=== PATIENT | female | born 1980 | race Caucasian/White ===

== ENCOUNTER 2020-04-29 02:22 | Emergency (ER) | payer OTHER ==
[~2020-04-29] VITALS: Ht 160 cm; Wt 59.0 kg
--- NOTE | 2020-04-29 02:35 | NUR ---
Patient came in with c/o abscesses on both upper thighs and left deltoid due to heroin use.
[2020-04-29] MEDS ORDERED: LIDOCAINE HCL 1% 20 ML VIAL ONE (02:56)
[2020-04-29] MEDS ORDERED: LORAZEPAM 1 MG TABLET ONE (02:57)
[2020-04-29] MEDS ORDERED: HYDROMORPHONE 2 MG/1 ML DISP.SYRIN ONE (02:57)
[2020-04-29] MEDS ORDERED: CEFTRIAXONE 1 G VIAL ONE (02:57)
[2020-04-29] MEDS ORDERED: LORAZEPAM 0.5 MG TABLET PO ONE (03:00)
[2020-04-29] MEDS ORDERED: SODIUM BICARBONATE 4.2 % (NEUT) 5 ML VIAL TP ONE (03:00)
[2020-04-29] MEDS ORDERED: CEFTRIAXONE 1 G VIAL IM ONE (03:00)
[2020-04-29] MEDS ORDERED: HYDROMORPHONE 1 MG/1 ML DISP.SYRIN IM ONE (03:00)
[2020-04-29] MEDS ORDERED: LIDOCAINE 1%-EPI 1:100,000 20 ML VIAL IJ ONE (03:00)
--- NOTE | 2020-04-29 03:00 | NUR ---
Medications administered. Patient placed on 2L oxygen via nasal cannula. SpO2 100%. Will continue to monitor. I&D setup at bedside.
--- NOTE | 2020-04-29 04:00 | NUR ---
Dr. Lemus at bedside for I&D.
--- NOTE | 2020-04-29 04:30 | NUR ---
Applied dressings to patient's abscess sites. Patient given written and verbal discharge instructions. Patient verbalizes understanding of instructions. Patient is ambulatory with steady gait. Refuses offer of snf placement. Patient given list of available shelters in surrounding area. Provided patient sandwich & Juice. Patient states she is going to take a Lyft back to her prior living arrangement.
[2020-04-29 05:12] VITALS: BP 121/83
--- NOTE | 2020-04-29 05:12 | NUR ---
Patient walked out of ER in stable condition. No acute distress noted.
== END 2020-04-29 05:14 | disposition home or self-care (01) ==
LOC: ER 02:25
DX: L02.415 Cutaneous abscess of right lower limb (principal); L02.31 Cutaneous abscess of buttock; L02.414 Cutaneous abscess of left upper limb; F19.10 Other psychoactive substance abuse, uncomplicated; F11.20 Opioid dependence, uncomplicated; F17.290 Nicotine dependence, other tobacco product, uncomplicated; R03.0 Elevated blood-pressure reading, without diagnosis of hypertension
CPT/HCPCS: 10061; 96372 ×2; 99284; 99406; J0696; J1170; J3490; A4217; A4663

== ENCOUNTER 2024-10-02 19:18 | Emergency (ER) | payer OTHER ==
[~2024-10-02] VITALS: Ht 162.6 cm; Wt 63.5 kg
[2024-10-02] MEDS ORDERED: SULFAMETH/TRIMETH 800/160 MG TABLET ONE (20:30)
[2024-10-02] MEDS ORDERED: ACETAMINOPHEN 500 MG TABLET ONE (20:30)
[2024-10-02] MEDS ORDERED: NEOMY/BACITRA/POLYMYXIN B OINT UD PACKET TP ONE (20:30)
[2024-10-02] MEDS: SULFAMETH/TRIMETH 800/160 MG TABLET PO ONE (20:36)
[2024-10-02] MEDS: NEOMY/BACITRA/POLYMYXIN B OINT UD PACKET TP ONE (20:37)
[2024-10-02] MEDS: ACETAMINOPHEN 500 MG TABLET PO ONE (20:37)
[2024-10-02] MEDS ORDERED: SULF1TAB48 PO (20:44)
[2024-10-02 20:54] VITALS: BP 134/89; TEMP 98.7; O2SAT 99
== END 2024-10-02 20:54 | disposition home or self-care (01) ==
LOC: ER 19:18
DX: L08.9 Local infection of the skin and subcutaneous tissue, unspecified (principal); F17.210 Nicotine dependence, cigarettes, uncomplicated; Z59.01 Sheltered homelessness
CPT/HCPCS: A4606; A4663; A9150